=== PATIENT | male | born 1985 | race Caucasian/White ===

== ENCOUNTER 2019-10-23 20:29 | Emergency (ER) | payer OTHER ==
[~2019-10-23] VITALS: Ht 165.1 cm; Wt 72.6 kg
== END 2019-10-23 23:45 | disposition home or self-care (01) ==
LOC: ER 20:29
DX: S42.002A Fracture of unspecified part of left clavicle, initial encounter for closed fracture (principal); H72.91 Unspecified perforation of tympanic membrane, right ear; V29.88XA Motorcycle rider (driver) (passenger) injured in other specified transport accidents, initial encounter; Y93.89 Activity, other specified; Y92.488 Other paved roadways as the place of occurrence of the external cause; Y99.8 Other external cause status

== ENCOUNTER 2022-05-01 21:52 | Emergency (ER) | payer OTHER ==
[~2022-05-01] VITALS: Ht 167.6 cm; Wt 63.5 kg
== END 2022-05-02 01:04 | disposition home or self-care (01) ==
LOC: ER 21:52
DX: R07.9 Chest pain, unspecified (principal)